=== PATIENT | female | born 1970 | race Caucasian/White ===

== ENCOUNTER → 2021-08-08 14:11 | Outpatient (CLI) | payer BC, SELFPAY ==
[2021-08-08 14:54] LABS: Amphetamine/Metha Screen,Urine Negative ng/ml (<1000)
[2021-08-08 14:55] LABS: Barbiturates Screen,Urine Negative ng/ml (<200); Benzodiazepines Screen,Urine Positive ng/ml (<200)
[2021-08-08 14:56] LABS: Cannabinoid Screen,Urine Negative ng/ml (<50)
[2021-08-08 14:57] LABS: Cocaine Screen,Urine Negative ng/ml (<300); Methadone Screen,Urine Negative ng/ml (<300)
[2021-08-08 14:58] LABS: Opiate Screen,Urine Negative ng/ml (<300)
[2021-08-08 14:59] LABS: Phencyclidine Screen,Urine Negative ng/ml (<25)
== END ==
PROVIDERS: Visit Provider Family Medicine
DX: Z79.899 Other long term (current) drug therapy (principal)
CPT/HCPCS: 80305

== ENCOUNTER → 2021-09-06 08:39 | Outpatient (CLI) | payer BC, SELFPAY ==
[2021-09-07 08:42] LABS: Adenovirus,PCR Not Detected (NotDetected); Bordetella Pertussis Not Detected (NotDetected); Chlamydophila Pneumoniae, PCR Not Detected (NotDetected); Coronavirus 19, PCR Not Detected (NotDetected); Coronavirus 229E Not Detected (NotDetected); Coronavirus NL63 Not Detected (NotDetected); Coronavirus OC43 Not Detected (NotDetected); Coronovirus HKU1,PCR Not Detected (NotDetected); Human Metapneumovirus Not Detected (NotDetected); Influenza A, PCR Not Detected (NotDetected); Influenza AH1, 2009 Not Detected (NotDetected); Influenza AH1, PCR Not Detected (NotDetected); Influenza AH3,PCR Not Detected (NotDetected); Influenza B, PCR Not Detected (NotDetected); Mycoplasma Pneumoniae, PCR Not Detected (NotDetected); Parainfluenza 1, PCR Not Detected (NotDetected); Parainfluenza 2, PCR Not Detected (NotDetected); Parainfluenza 3, PCR Not Detected (NotDetected); Parainfluenza 4, PCR Not Detected (NotDetected); Respiratory Syncytial Virus Not Detected (NotDetected); Rhinovirus/Enterovirus Not Detected (NotDetected)
== END ==
PROVIDERS: Visit Provider Family Medicine
DX: Z20.822 Contact with and (suspected) exposure to COVID-19 (principal); R06.02 Shortness of breath; R50.9 Fever, unspecified
CPT/HCPCS: 87581; 87632; 87798; C9803; U0003; U0005

== ENCOUNTER → 2021-10-04 13:56 | Outpatient (CLI) | payer BC, SELFPAY ==
[2021-10-04 15:40] LABS: Phencyclidine Screen,Urine Negative ng/ml (<25)
[2021-10-04 15:41] LABS: Amphetamine/Metha Screen,Urine Negative ng/ml (<1000)
[2021-10-04 15:42] LABS: Barbiturates Screen,Urine Negative ng/ml (<200); Benzodiazepines Screen,Urine Positive ng/ml (<200)
[2021-10-04 15:43] LABS: Cannabinoid Screen,Urine Negative ng/ml (<50)
[2021-10-04 15:44] LABS: Cocaine Screen,Urine Negative ng/ml (<300); Methadone Screen,Urine Negative ng/ml (<300)
[2021-10-04 15:45] LABS: Opiate Screen,Urine Negative ng/ml (<300)
== END ==
PROVIDERS: Visit Provider Emergency Medicine
DX: Z79.899 Other long term (current) drug therapy (principal)
CPT/HCPCS: 80305

== ENCOUNTER → 2021-12-07 15:34 | Outpatient (CLI) | payer BC, SELFPAY ==
[2021-12-07 14:30] LABS: Amphetamine/Metha Screen,Urine Negative ng/ml (<1000)
[2021-12-07 14:31] LABS: Barbiturates Screen,Urine Negative ng/ml (<200)
[2021-12-07 14:32] LABS: Benzodiazepines Screen,Urine Positive ng/ml (<200)
[2021-12-07 14:33] LABS: Cannabinoid Screen,Urine Negative ng/ml (<50)
[2021-12-07 14:34] LABS: Cocaine Screen,Urine Negative ng/ml (<300); Methadone Screen,Urine Negative ng/ml (<300)
[2021-12-07 14:35] LABS: Opiate Screen,Urine Negative ng/ml (<300); Phencyclidine Screen,Urine Negative ng/ml (<25)
== END ==
PROVIDERS: Visit Provider Emergency Medicine
DX: Z79.899 Other long term (current) drug therapy (principal)
CPT/HCPCS: 80305

== ENCOUNTER → 2021-12-27 13:35 | Outpatient (CLI) | payer BC, SELFPAY ==
[2021-12-27 13:22] LABS: Basophils # 0.1 K/mm3 (0-0.2); Basophils % 0.7 % (0.1-2.0); Eosinophils # 0.2 K/mm3 (0.0-0.4); Eosinophils % 1.4 % (0.1-12.0); Hematocrit 41.9 % (37.0-47.0); Hemoglobin 13.1 g/dL (12.2-16.2); Lymphocytes # 3.3 K/mm3 (0.7-4.5); Mean Corpuscular HGB Conc 31.2 g/dL (31.8-35.4); Mean Corpuscular Hemoglobin 30.7 pg (27.0-31.2); Mean Corpuscular Volume 98.2 fl (81-99); Mean Platelet Volume 9.8 fl (7.4-10.4); Monocytes # 0.6 K/mm3 (0.1-1.0); Monocytes % 5.9 % (1.7-9.3); Neutrophils # 6.6 K/mm3 (1.8-7.8); Neutrophils % 61.1 % (37.0-80.0); Platelet Count 405 K/mm3 (142-424); Red Blood Count 4.27 M/mm3 (4.20-5.40); White Blood Count 10.8 K/mm3 (4.8-10.8)
[2021-12-27 13:40] LABS: Alanine Aminotransferase 26 U/L (12-78); Albumin Level 4.2 g/dl (3.5-5.0); Albumin/Globulin Ratio 1.6 (1.1-1.8); Alkaline Phosphatase 98 U/L (38-126); Anion Gap 10.8 mEq/L (5-15); Aspartate Amino Transferase 32 U/L (14-36); Bilirubin,Total 0.3 mg/dl (0.2-1.3); Blood Urea Nitrogen 5 mg/dl (7-17); Calcium 9.1 mg/dl (8.4-10.2); Carbon Dioxide 28 mmol/L (22.0-30.0); Chloride 106 mmol/L (98-107); Chol/HDL Ratio 5.3 (1-3.5); Cholesterol 170 mg/dl (140-200); Estimated Glomerular Filt Rate 89 ml/min (>60); GFR (African American) 107 ML/MIN (>60); Globulin 2.6 g/dL (1.3-3.2); Glucose 93 mg/dl (74-100); HDL Cholesterol 32 mg/dl (40-60); Potassium 3.8 mmoL/L (3.5-5.1); Sodium 141 mmol/L (136-145); Total Protein,Serum 6.8 g/dl (6.3-8.2); Triglycerides 173 mg/dl (30-150); VLDL Cholesterol 35 mg/dL (0-40)
[2021-12-27 13:50] LABS: NT Pro Brain Natriuretic Pep. 194 pg/mL (0-125)
[2021-12-27 13:51] LABS: Direct LDL Cholesterol 98.23 mg/dL (100-129)
[2021-12-27 13:56] LABS: Free T4 (Free Thyroxine) 1.05 ng/dl (0.78-2.19)
[2021-12-27 13:58] LABS: 25-OH Vitamin D, Total 30.6 ng/mL (30-100)
[2021-12-27 14:11] LABS: Thyroid Stimulating Hormone 1.93 uIU/mL (0.465-4.68)
[2021-12-27 17:09] LABS: Amphetamine/Metha Screen,Urine Negative ng/ml (<1000)
[2021-12-27 17:10] LABS: Barbiturates Screen,Urine Negative ng/ml (<200); Benzodiazepines Screen,Urine Positive ng/ml (<200)
[2021-12-27 17:11] LABS: Cannabinoid Screen,Urine Negative ng/ml (<50)
[2021-12-27 17:12] LABS: Cocaine Screen,Urine Negative ng/ml (<300); Methadone Screen,Urine Negative ng/ml (<300)
[2021-12-27 17:13] LABS: Opiate Screen,Urine Negative ng/ml (<300)
[2021-12-27 17:14] LABS: Phencyclidine Screen,Urine Negative ng/ml (<25)
== END ==
PROVIDERS: Visit Provider Emergency Medicine
DX: E03.9 Hypothyroidism, unspecified (principal); E66.3 Overweight; Z79.899 Other long term (current) drug therapy; E55.9 Vitamin D deficiency, unspecified; I50.9 Heart failure, unspecified
CPT/HCPCS: 80053; 80061; 80305; 82306; 83880; 84439; 84443; 85025

== ENCOUNTER → 2022-01-14 08:29 | Outpatient (CLI) | payer BC, SELFPAY ==
--- NOTE | 2022-01-14 08:30 | MR_ITS ---
FINAL REPORT CLINICAL HISTORY: low back pain x's 2 months. pain radiates down right leg. leg swelling and pain. nki. FINDINGS: Multiplanar MR imaging of the lumbar spine was performed without contrast. On the sagittal T2-weighted images, multilevel disc degeneration is seen. There are endplate changes at L5-S1. The vertebral alignment is normal. There is no evidence of fracture. No bony mass is identified. The conus is seen at approximately the L1 level and has an unremarkable appearance. L1-2: There is no significant canal stenosis or neural foraminal narrowing. L2-3: There is no significant canal stenosis or neural foraminal narrowing. L3-4: There is no significant canal stenosis or neural foraminal narrowing. L4-5: Annular disc bulge with small left paracentral disc protrusion and mild left neural foraminal narrowing. L5-S1: Annular disc bulge with facet arthropathy and osteophytes. There is severe right and moderate left neural foraminal narrowing. IMPRESSION: Multilevel degenerative disc disease with small paracentral disc protrusion at L4-5 and severe right neural foraminal narrowing at L5-S1. Reviewed, Interpreted and Dictated by Deandre Shields III, MD Transcribed by Brooke Martinez Authenticated by Deandre Shields III, MD on 01/16/2022 07:43:50 AM [facility]
== END ==
PROVIDERS: PCP Emergency Medicine; Visit Provider Emergency Medicine
DX: M54.50 Low back pain, unspecified (principal)
CPT/HCPCS: 72148; 76376

== ENCOUNTER → 2022-01-20 12:20 | Outpatient (CLI) | payer BC, SELFPAY ==
--- NOTE | 2022-01-20 12:21 | CA_ITS ---
APPROVED REPORT EXAM: Comprehensive 2D, Doppler, and color-flow Echocardiogram Information Systems Supervisor: Mavis Bull RVT Ht: 5 ft 5 in Wt: 156lbs BSA: 1.78 BP: 120/80 mmHg Indications: EDEMA,SMOKER,MURMUR 2D Dimensions LVOT 1.93 cm (M/F) 1.5-2.5 LA Volume 27.10 mL LA Volume Index 15.22 mL/m2 (M/F) 16-34 M-Mode Dimensions RVDd 2.47 cm (0.9-2.6) LA Diam 3.14 cm (1.9-4.0) LVDd 4.41 cm (3.5-5.7) Ao Diam 3.32 cm (2.0-3.7) LVDs 2.96 cm (3.5-5.7) IVSd 0.87 cm (0.6-1.1) PWd 0.72 cm (0.6-1.1) EF (Teich) 61.60% FS 32.90% EDV (Teich) 88.20 mL TAPSE 2.44 (<1.7) ESV (Teich) 33.90 mL LV Diastology E Decel Time 150.00 (160-240 msec) E/A Ratio 1.2 MED E' 6.20 (< 7 cm/sec) E'/MED E' Ratio 10.23 (>14) LAT E' 10.20 (<10 cm/sec) E/LAT E' Ratio 6.22 (>14) Aortic Valve AO Peak GR. 5.10 mmHg Mitral Valve MV E Max Yousif. 63.00 (40-130 cm/s) MV A Velocity 51.00 (40-130 cm/s) E/A Ratio 1.25 MV Decel. Time 150.00 (160-240 ms) MV PHT 44.00 ms Pulmonary Valve PV Peak Velocity 73.00 (50-150 cm/s) Tricuspid Valve TR P. Velocity 231.00 cm/s RAP Estimate 10.00 mmHg RVSP 31.40 mmHg Left Ventricle Left atrium is mildly enlarged, left ventricle is normal size, estimated ejection fraction 55% with no regional wall motion abnormality. Diastolic parameters are inconclusive. Right atrium and right ventricle are mildly enlarged with normal contractility. Aortic Valve Aortic valve is minimally thickened and fibrosed, there is no aortic stenosis or aortic insufficiency. Mitral Valve Mitral valve grossly normal, there is trace mitral regurgitation. Tricuspid Valve Tricuspid valve grossly normal, there is mild tricuspid regurgitation, tricuspid regurgitation jet velocity is inadequate for calculation of the right ventricular systolic pressure. Pulmonic Valve Pulmonic valve is poorly visualized. Great Vessels Aortic root is normal size. Inferior vena cava is normal size with normal inspiratory collapse. Pericardium No significant pericardial effusion noted. Conclusion 1. Mild biatrial enlargement, normal left ventricular size, estimated ejection fraction 55% with no regional wall motion abnormality. Diastolic parameters are inconclusive. 2. Trace mitral and mild tricuspid regurgitation. 3. No significant pericardial effusion. 4. Inferior vena cava is normal size with normal inspiratory collapse. Electronically signed by : Brando Greene MD 01/20/2022 15:18:17
== END ==
PROVIDERS: PCP Emergency Medicine; Visit Provider Emergency Medicine
DX: R01.1 Cardiac murmur, unspecified (principal)
CPT/HCPCS: 93306

== ENCOUNTER → 2022-02-15 12:32 | Outpatient (CLI) | payer BC, SELFPAY ==
[2022-02-15 17:26] LABS: Barbiturates Screen,Urine Negative ng/ml (<200)
[2022-02-15 17:27] LABS: Benzodiazepines Screen,Urine Positive ng/ml (<200)
[2022-02-15 17:28] LABS: Amphetamine/Metha Screen,Urine Negative ng/ml (<1000); Methadone Screen,Urine Negative ng/ml (<300)
[2022-02-15 17:29] LABS: Cannabinoid Screen,Urine Negative ng/ml (<50); Cocaine Screen,Urine Negative ng/ml (<300)
[2022-02-15 17:31] LABS: Opiate Screen,Urine Negative ng/ml (<300); Phencyclidine Screen,Urine Negative ng/ml (<25)
== END ==
PROVIDERS: Visit Provider Emergency Medicine
DX: Z79.899 Other long term (current) drug therapy (principal)
CPT/HCPCS: 80305

== ENCOUNTER → 2022-03-20 11:06 | Outpatient (POV) | payer BC, SELFPAY ==
[2022-03-20 12:29] VITALS: BP 125/72; PULSE 64; RESP 20; TEMP 37.1; O2SAT 95; BMI 23.6
--- NOTE | 2022-03-20 13:58 | HMH.PMCON ---
Assessment and Plan (1) Degenerative disc disease, lumbar Status: Acute Category: Medical Code(s): M51.36 - Other intervertebral disc degeneration, lumbar region (2) Lumbar radiculopathy Status: Acute Category: Medical Code(s): M54.16 - Radiculopathy, lumbar region (3) Facet arthropathy, lumbar Status: Acute Category: Medical Code(s): M47.816 - Spondylosis without myelopathy or radiculopathy, lumbar region (4) Spondylosis Status: Acute Category: Medical Code(s): M47.9 - Spondylosis, unspecified - Assessment and plan all Dx Assessment and Plan for all problems:: Imaging: Ordering Physician: Salas Gabriel MD Date of Service: 01/14/22 Procedure(s): MR lumbar spine wo con Accession Number(s): [id number] cc: Salas Gabriel MD; Deandre Shields MD~ FINAL REPORT CLINICAL HISTORY: low back pain x's 2 months. pain radiates down right leg. leg swelling and pain. nki. FINDINGS: Multiplanar MR imaging of the lumbar spine was performed without contrast. On the sagittal T2-weighted images, multilevel disc degeneration is seen. There are endplate changes at L5-S1. The vertebral alignment is normal. There is no evidence of fracture. No bony mass is identified. The conus is seen at approximately the L1 level and has an unremarkable appearance. L1-2: There is no significant canal stenosis or neural foraminal narrowing. L2-3: There is no significant canal stenosis or neural foraminal narrowing. L3-4: There is no significant canal stenosis or neural foraminal narrowing. L4-5: Annular disc bulge with small left paracentral disc protrusion and mild left neural foraminal narrowing. L5-S1: Annular disc bulge with facet arthropathy and osteophytes. There is severe right and moderate left neural foraminal narrowing. IMPRESSION: Multilevel degenerative disc disease with small paracentral disc protrusion at L4-5 and severe right neural foraminal narrowing at L5-S1. Reviewed, Interpreted and Dictated by Deandre Shields III, MD Transcribed by Brooke Martinez Authenticated by Deandre Shields III, MD on 01/16/2022 07:43:50 AM [facility] Plan: Patient has been having worsening low back pain that radiates to bilateral lower extremities. Patient is tender to palpation around the lumbar facets. Patient does physical therapy 2 times a week that provides minimal relief. We will schedule the patient for a diagnostic medial branch block at L4-L5, L5-S1 bilaterally. Patient is not on any blood thinners. Follow-up after the injection. Patient has been instructed to contact the clinic with any concerns before the next appointment. Dr. Peterson has reviewed this note and agrees with this plan of care. This note was dictated using voice recognition software and make contain errors or omissions. HPI - Data of Consult Patient: new to practice Consult date: 03/20/22 Requesting Physician: TAN Chopra - Consult Narrative Reason for consult: LBP History of present illness: Ms. Lovett is a 51 year old female who presents today as a new pt. Patient is referred by Dr. Lovett. Thank you for the referral. Pt presents with worsening LBP that radiates at time to BLE. She's had pain for several years but has gotten worse in January. She had to go to the ED in January because of the pain. She cannot tolerate any prolonged activities such as standing and walking. Pain is worse with lumbar flexion, extension, and rotation. She has seen NSx/Ortho who deemed her a non-surgical candidate. She goes to PT x2/week that is providing some relief. She used to be an RN. She is currently on suboxone therapy and has been for 12-13 years. Because of this pain, she has been having trouble with her ADLs. Rates pain as 9/10. For pain, she is also prescribed Gabapentin 800mg TID, Suboxone, and Alprazolam 1mg TID. [facility] [id number], MEQ 0. CC: TAN Chopra [facility] History I have reviewed the patient's past medical history: Yes Medical
== END ==
PROVIDERS: Visit Provider Student in an Organized Health Care Education/Training Program
DX: M51.16 Intervertebral disc disorders with radiculopathy, lumbar region (principal); M47.26 Other spondylosis with radiculopathy, lumbar region; Z72.0 Tobacco use
CPT/HCPCS: 99202; G0463

== ENCOUNTER 2022-04-07 11:52 | Day surgery (SDC) | payer BC, SELFPAY ==
[2022-04-07 12:13] VITALS: BP 112/78; PULSE 70; RESP 18; TEMP 36.8; O2SAT 96; BMI 23.4
[2022-04-07 12:19] VITALS: BP 125/54; PULSE 70; RESP 20
[2022-04-07 12:30] VITALS: BP 114/79; PULSE 69; RESP 18; O2SAT 97
--- NOTE | 2022-04-07 12:41 | HMH.PMPROC ---
- Procedure Date: 04/07/22 Time: 12:41 Anesthesiologist:: Eulalio Heard CRNA Complications:: None Pre-procedure Diagnosis:: Degenerative disease lumbar spine multilevels. Lumbar spondylosis. Lumbar facet arthropathy. Post-procedure Diagnosis:: Same Indications for Procedure:: Patient is a very pleasant 51-year-old female who comes our clinic today for bilateral L4-5, L5-S1 facet blocks. Patient complains of low back pain with minimal radicular symptoms. Her MRI does show degenerative disc disease lumbar spine multilevels. With L4-5 and L5-S1 facet arthropathy. Procedure Details:: Details of the procedure were explained to the patient. The patient taken the procedure room placed in the prone position on the fluoroscopy table. The area of the lumbar spine was cleaned using chlorhexidine as a cleansing solution. Markers were placed over the L4-5 L5-S1 pedicles. The skin and subcutaneous tissue was anesthetized using 1% lidocaine and a 25-gauge needle. At this time using it 3 and half inch 22-gauge spinal needle the right lumbar L4-5 facet joint as well as the right L5-S1 facet joint was accessed. 1 cc of 1% lidocaine and 10 mg of Depo-Medrol was injected. The same procedure was carried out on the left side at that same joints. Patient tolerated the procedure without difficulty. There are no complications. Plan and Disposition:: Patient was discharged without incident.
== END 2022-04-07 12:30 | disposition home or self-care (01) ==
LOC: SC.PAINP 11:55
PROVIDERS: PCP Emergency Medicine; Visit Provider Nurse Anesthetist, Certified Registered
DX: M51.36 Other intervertebral disc degeneration, lumbar region (principal); M54.06 Panniculitis affecting regions of neck and back, lumbar region; M47.896 Other spondylosis, lumbar region
CPT/HCPCS: 64493; 64494; J1040

== ENCOUNTER → 2022-05-01 11:02 | Outpatient (POV) | payer BC, SELFPAY ==
[2022-05-01 11:37] VITALS: BP 141/89; PULSE 60; RESP 20; TEMP 36.6; O2SAT 98; BMI 25.0
--- NOTE | 2022-05-01 12:43 | HMH.PAINSOAP ---
[facility] Pain Management SOAP Note Subjective:: Patient is a pleasant 51-year-old female the presents today for follow-up from a medial branch block at L4-L5, L5-S1 on 04/07/2022. We are currently treating the patient for degenerative disc disease of lumbar spine multilevels with lumbar spondylosis and lumbar facet arthropathy. Patient states that she had significant relief from this injection. She states that she had 70% improvement on her left side and feels like it is still helping. She states that she still is having more right-sided low back pain. She states that this is an ache, throbbing sensation. Patient denies any new trauma or injury to the site. She states that she has had this pain over the last several years. She states that she was lifting her granddaughter this weekend which seemed to make it worse. Patient states that activities of daily living such as washing the dishes also aggravate the pain. Patient is currently going to physical therapy to provide some relief. She has used a TENS unit in the past with minimal improvement. She has been seen by neurosurgery who is deemed her a nonsurgical candidate. She sees Dr. Lovett in [place] as needed. Patient used to be an RN. She is currently on Suboxone therapy and has been for 12 to 13 years. She is managed with gabapentin 800 mg 3 times daily and alprazolam 1 mg 3 times daily. These medications are written by Dr. Gabriel. Patient also states she has a history of migraines and is interested in Botox therapy. Her Renaldo is [phone]. It has been reviewed and appropriate. Review of Systems: General: No recent weight changes, no fever, no sleep disturbances Respiratory: No cough, no shortness of air, no recurring pulmonary infections Cardiovascular/peripheral vascular: No chest pain, no palpitations, no edema, no shortness of breath Gastrointestinal: No new onset incontinence, normal bowel movements reported Genitourinary: No new onset incontinence Musculoskeletal: Low back pain Psychiatric: [Normal mood/affect] Neurological: [Denies weakness in extremities], [denies balance issues] Objective:: Physical Exam: General: Alert and oriented x3, no acute distress, pleasant and cooperative Lungs: Respirations even and unlabored, symmetrical chest expansion Eyes: PERRL Musculoskeletal: Flexion and extension of lumbar [spine] somewhat guarded secondary to pain, [antalgic gait noted] Neurological: Speech clear, no gross sensory deficit Assessment:: Degenerative disc disease of lumbar spine multilevels, lumbar spondylosis, lumbar facet arthropathy, right sacroiliitis, migraines Plan:: Patient has had significant pain in her right low back. She had a positive point tenderness in her lumbar spine. Patient also had a positive right Tyrell, Ailyn's, Gaenslen's, compression, distraction during today's exam. I have discussed with the patient regarding SI injections. Risk and benefits were discussed with the patient. She would like to proceed forward with this injection at this time. I will order the patient diclofenac 75 mg twice daily. We will follow-up with the patient regarding her migraine history at our next visit for possible Botox injections. The patient will be scheduled for a right sacroiliac injection. Patient has been instructed to contact the clinic with any concerns before the next appointment. Dr. Peterson has reviewed this note and agrees with this plan of care. This note was dictated using voice recognition software and make contain errors or omissions. [facility] History I have reviewed the patient's past medical history: Yes Medical History: Reports:: Anxiety, Depression Denies:: Diabetes Mellitus Type 1, Diabetes Mellitus Type 2, MRSA *Have you ever received a pneumonia vaccine?: Yes *Have you received a flu vaccine this season?: Yes Other Medical History: Reports: Arthritis, Hypothyroidism, Other Laterality Cases: Bilateral: Myringotomy (Ear Tubes), Tonsillectomy Other Surgeries:
== END ==
PROVIDERS: PCP Emergency Medicine; Visit Provider Student in an Organized Health Care Education/Training Program
DX: M51.36 Other intervertebral disc degeneration, lumbar region (principal); M47.26 Other spondylosis with radiculopathy, lumbar region; M46.1 Sacroiliitis, not elsewhere classified
CPT/HCPCS: 99212; G0463

== ENCOUNTER 2022-05-12 08:35 | Day surgery (SDC) | payer BC, SELFPAY ==
[2022-05-12 08:42] VITALS: BP 112/80; PULSE 92; RESP 20; TEMP 36.7; O2SAT 99; BMI 24.4
[2022-05-12 09:20] VITALS: BP 105/71; PULSE 81; RESP 18; O2SAT 98
--- NOTE | 2022-05-12 09:45 | HMH.PMPROC ---
- Procedure Date: 05/12/22 Time: 09:45 Anesthesiologist:: Eulalio Heard CRNA Complications:: None Pre-procedure Diagnosis:: Right sacroiliitis Post-procedure Diagnosis:: Same Indications for Procedure:: This patient is a pleasant 51-year-old female who comes our clinic today for right SI joint injection. She has had significant improvement with the previous right SI joint injection lasting 3 months. She rates her pain 7/10 today..~ Procedure Details:: Procedure: Right sacroliliac joint injection under fluoroscopy Informed consent was obtained and the risk and benefits of the procedure were explained to the patient.~ The patient was taken to the procedure room and noninvasive monitors were placed including noninvasive blood pressure cuff and pulse oximeter.~ The patient was placed prone on the procedure table.~ The~ right hip was cleansed using Betadine as a cleansing solution.~ C-arm fluorosocpy was used to view the right SI joint.~ The skin and subcutaneous tissues were anesthetized using Lidocaine 1.5% and a 25-gauge needle.~ After this, a 22-gauge spinal needle was inserted under fluoroscopic guidance into the inferior aspect of the right SI joint.~ Omnipaque dye was injected and a good spread was seen throughout the joint.~ After this, approximately 5 mL of bupivacaine 0.25% and Depo-Medrol 40 mg was incrementally injected into the sacroiliac joint.~ The patient tolerated the procedure well with no complications.~ The patient was observed in the Pain Clinic, then discharged home neurologically intact.~ Plan and Disposition:: Patient was discharged without incident.
== END 2022-05-12 09:20 | disposition home or self-care (01) ==
LOC: SC.PAINP 08:36
PROVIDERS: PCP Emergency Medicine; Visit Provider Nurse Anesthetist, Certified Registered
DX: M46.1 Sacroiliitis, not elsewhere classified (principal)
CPT/HCPCS: 27096; G0260; J1040

== ENCOUNTER → 2022-06-28 09:49 | Outpatient (POV) | payer BC, SELFPAY ==
[2022-06-28 10:45] VITALS: BP 100/59; PULSE 83; RESP 18; TEMP 36.7; O2SAT 96; BMI 22.4
--- NOTE | 2022-06-28 13:03 | EXP.PAIN.SOA ---
[facility] Pain Management SOAP Note Subjective:: Patient is a pleasant 52-year-old female who presents today for follow-up of right SI injection on 05/12/2022. We are currently treating the patient for degenerative disc disease of lumbar spine multilevels with lumbar spondylosis, lumbar facet arthropathy, sacroiliitis. Patient states that this injection did provide at least 50% of improvement lasting for approximately 1 month. Patient does state that she feels like her pain is all back to its baseline currently. She rates her pain a 10 out of 10. And states is all in her low back that radiates into her right hip and butt. Patient states that she has worse pain with twisting and bending. Patient has had injective therapy in the past that has provided significant improvement of her symptoms. Patient denies any new trauma or injury. Patient denies any change in location or type of pain she experiences. And previous patient has stated that this has been going on for several years and has worsened over time. This pain often interferes with her activities of daily living such as washing the dishes and holding her granddaughter. Patient has gone to physical therapy with some improvement of her symptoms. She does use a TENS unit as well. Patient was deemed a nonsurgical candidate by neurosurgery in the past. She is currently managed with gabapentin 800 mg 3 times a day and alprazolam 1 mg 3 times a day by Dr. Gabriel's office. Patient denies any side effects from these medications. She states these medications do help with her pain symptoms. She is also on Suboxone therapy and has been for approximately 12 to 13 years. Patient does also have a history of migraines and she is interested in Botox therapy in the future. Her Renaldo is [id number]. It is been reviewed and appropriate. Review of Systems: General: No recent weight changes, no fever, no sleep disturbances Respiratory: No cough, no shortness of air, no recurring pulmonary infections Cardiovascular/peripheral vascular: No chest pain, no palpitations, no edema, no shortness of breath Gastrointestinal: No new onset incontinence, normal bowel movements reported Genitourinary: No new onset incontinence Musculoskeletal: Low back pain, right hip/buttock pain Psychiatric: [Normal mood/affect] Neurological: [Denies weakness in extremities], [denies balance issues] Objective:: Physical Exam: General: Alert and oriented x3, no acute distress, pleasant and cooperative Lungs: Respirations even and unlabored, symmetrical chest expansion Eyes: PERRL Musculoskeletal: Flexion and extension of lumbar [spine] somewhat guarded secondary to pain, [antalgic gait noted] Neurological: Speech clear, no gross sensory deficit Assessment:: Degenerative disc disease of lumbar spine multilevels with lumbar spondylosis, lumbar facet arthropathy, sacroiliitis Plan:: Patient continues to have significant pain in her low back that radiates into her right hip/buttocks during today's visit. Patient had limited range of motion of her lumbar spine during today's visit. She has tried oral therapies, heat and ice, physical therapy, at home exercises and stretching for longer than 6 weeks with minimal improvement of her symptoms. I have discussed with the patient regarding having repeat medial branch blocks. Risk and benefits were discussed with the patient. She would like to proceed forward with this injection. We will schedule the patient for MBB L4-5 and L5-S1. Patient has been instructed to contact the clinic with any concerns before the next appointment. Dr. Peterson has reviewed this note and agrees with this plan of care. This note was dictated using voice recognition software and make contain errors or omissions. [facility] Social History Smoking Status: Current every day smoker tobacco type: cigarettes packs per day: 1 alcohol intake: never substance use type: former substance user
== END ==
PROVIDERS: PCP Emergency Medicine; Visit Provider Nurse Practitioner Family
DX: M51.16 Intervertebral disc disorders with radiculopathy, lumbar region (principal); M47.26 Other spondylosis with radiculopathy, lumbar region; M46.1 Sacroiliitis, not elsewhere classified
CPT/HCPCS: 99212; G0463

== ENCOUNTER 2022-07-11 10:11 | Day surgery (SDC) | payer BC, SELFPAY ==
[2022-07-11 10:37] VITALS: BP 119/75; PULSE 73; RESP 16; TEMP 36; O2SAT 98; BMI 22.4
[2022-07-11 10:49] VITALS: BP 117/82; PULSE 77; RESP 18; O2SAT 98
[2022-07-11 10:50] VITALS: BP 123/74; PULSE 70; RESP 18; O2SAT 98
--- NOTE | 2022-07-11 10:56 | P.PCN_ITS ---
Procedure Date: 07/11/22 Time: 10:56 Anesthesiologist:: Eulalio Heard CRNA Complications:: None Pre-procedure Diagnosis:: Degenerative disc disease lumbar spine multilevels. Lumbar radiculopathy. Lumbar facet arthropathy. Lumbar spondylosis. Post-procedure Diagnosis:: Same. Indications for Procedure:: Very pleasant 52-year-old female that comes our clinic today for lumbar medial branch block L4-5, L5-S1. Patient states she has had these many times in the past with significant improvement. Typically, her improvement is 6 to 8 weeks in duration. She describes her low back pain as constant, dull, aching. She rates pain 8/10. Procedure Details:: Informed consent was obtained and the risk and benefits of the procedure was explained to the patient. Patient was taken to the procedure room where noninvasive monitors were placed, including noninvasive blood pressure cuff as well as pulse oximeter. The area over the lumbar spine was cleansed using chlorhexidine as a cleansing solution. I anesthetized the skin and subcutaneous tissues with 1% Lidocaine. I placed 22-gauge spinal needles into the facet joint/ medial branches of L4-L5, and L5-S1] bilaterally. Needle placement was confirmed with fluoroscopy. After confirmation of needle placement, each site was injected with 1 mL of 1% lidocaine and 0.25 % Marcaine and 10 mg of Depo- Medrol. A total of 80 mg of depo medrol was used for bilateral medial branch blocks of L4-L5, and L5-S1] bilaterally. Patient tolerated the procedure without difficulty. There were no complications. Plan and Disposition:: Patient was discharged without incident
[2022-07-11 10:58] VITALS: BP 112/68; PULSE 66; RESP 20; O2SAT 97
== END 2022-07-11 10:59 | disposition home or self-care (01) ==
PROVIDERS: PCP Emergency Medicine; Visit Provider Nurse Anesthetist, Certified Registered
DX: M51.16 Intervertebral disc disorders with radiculopathy, lumbar region (principal); M47.26 Other spondylosis with radiculopathy, lumbar region; M46.1 Sacroiliitis, not elsewhere classified; Z72.0 Tobacco use
CPT/HCPCS: 64493; 64494; J1040

== ENCOUNTER → 2022-09-11 10:03 | Outpatient (POV) | payer BC, SELFPAY ==
[2022-09-11 10:32] VITALS: BP 97/48; PULSE 67; RESP 18; O2SAT 95; BMI 25.4
--- NOTE | 2022-09-11 11:22 | EXP.PAIN.SOA ---
[facility] Pain Management SOAP Note Subjective:: Patient is a pleasant 52-year-old female who presents today for follow-up. We are currently treating the patient for degenerative disc disease of lumbar spine multilevels with lumbar spondylosis, lumbar facet arthropathy, sacroiliitis. Today the patient rates her pain a 10 out of 10. Patient describes the pain in her low back that is worse with bending, lifting and twisting. Patient states she is unable to do activities of daily living such as light cooking or cleaning due to the pain. Patient states she did recently have a fall last week at her apartment building. Patient states she was going down the outside for stairs and that there is no light currently and she fell landing on her right thigh and right arm. Patient denies any fractures or trauma. Patient states she did have significant bruising and is still having some soreness to touch due to the fall. Patient believes this may have aggravated her pain symptoms in her low back. Patient previously had injections in the past that provided significant improvement of her symptoms. Patient did have a right SI injection that provided at least 50% improvement lasting over 1 month. Patient also has had medial branch blocks of her lumbar spine that provided 80% relief lasting 2 to 3 months. Patient is interested in injective therapy at today's visit. Patient is currently prescribed gabapentin 800 mg 3 times [address] day from Dr. Gabriel's office. Patient denies any side effects from this medication. Patient states this does provide significant improvement of her symptoms. She is also on Suboxone therapy by Estephania Dan. Her Renaldo is [id number]. It has been reviewed and appropriate. Injections: 07/11/2022?lumbar medial branch block bilaterally L4-L5, L5-S1-80% relief lasting 2 months 05/12/2022?right SI-50% relief lasting 1 month 04/07/2022?lumbar medial branch block bilaterally L4-L5, L5-S1?8200% relief lasting 2 to 3 months Review of Systems: General: No recent weight changes, no fever, no sleep disturbances Respiratory: No cough, no shortness of air, no recurring pulmonary infections Cardiovascular/peripheral vascular: No chest pain, no palpitations, no edema, no shortness of breath Gastrointestinal: No new onset incontinence, normal bowel movements reported Genitourinary: No new onset incontinence Musculoskeletal: Low back pain Psychiatric: [Normal mood/affect] Neurological: [Denies weakness in extremities], [denies balance issues] Objective:: Physical Exam: General: Alert and oriented x3, no acute distress, pleasant and cooperative Lungs: Respirations even and unlabored, symmetrical chest expansion Eyes: PERRL Musculoskeletal: Flexion and extension of lumbar [spine] somewhat guarded secondary to pain, [antalgic gait noted] positive Kemps test Neurological: Speech clear, no gross sensory deficit Assessment:: Degenerative disc disease of lumbar spine multilevels with lumbar spondylosis, lumbar facet arthropathy, sacroiliitis Plan:: Patient is experiencing significant pain in her low back. Patient has limited range of motion of her lumbar spine along with a positive Kemps test during today's visit. Patient has had 2 lumbar medial branch blocks that provided significant improvement of approximately 80 to 100% relief lasting 2 to 3 months. Patient has tried and failed conservative therapies such as oral medications, topicals, heat and ice, physical therapy, at home exercising and stretching for longer than 6 weeks. I have discussed with the patient that she may benefit from diagnostic lumbar RFA. Patient has had risk and benefits were discussed with the patient. She would like to proceed forward with this plan of care. Patient is not on any blood thinners. We will schedule the patient for a lumbar RFA bilaterally L4-L5, L5-S1. Patient has been instructed to contact the clinic with any concerns before the next appointment. Dr. Peterson has reviewed this note and agrees wi
== END ==
PROVIDERS: PCP Emergency Medicine; Visit Provider Nurse Practitioner Family
DX: M51.16 Intervertebral disc disorders with radiculopathy, lumbar region (principal); M46.1 Sacroiliitis, not elsewhere classified; M47.26 Other spondylosis with radiculopathy, lumbar region
CPT/HCPCS: 99212; G0463

== ENCOUNTER → 2022-12-18 23:16 | Outpatient (CLI) | payer BC, SELFPAY ==
[2022-12-18 18:22] LABS: Benzodiazepines Screen,Urine Negative ng/ml (<200)
[2022-12-18 18:23] LABS: Amphetamine/Metha Screen,Urine Positive ng/ml (<1000)
[2022-12-18 18:24] LABS: Barbiturates Screen,Urine Negative ng/ml (<200); Cannabinoid Screen,Urine Negative ng/ml (<50)
[2022-12-18 18:25] LABS: Cocaine Screen,Urine Negative ng/ml (<300)
[2022-12-18 18:26] LABS: Methadone Screen,Urine Negative ng/ml (<300)
[2022-12-18 18:27] LABS: Opiate Screen,Urine Negative ng/ml (<300); Phencyclidine Screen,Urine Negative ng/ml (<25)
== END ==
PROVIDERS: PCP Emergency Medicine; Visit Provider Emergency Medicine
DX: F41.9 Anxiety disorder, unspecified (principal); F19.11 Other psychoactive substance abuse, in remission
CPT/HCPCS: 80305; 80324

== ENCOUNTER → 2022-12-27 09:01 | Outpatient (POV) | payer BC, SELFPAY ==
[2022-12-27 09:57] VITALS: BP 102/70; PULSE 91; RESP 18; O2SAT 97; BMI 25.1
--- NOTE | 2022-12-27 10:11 | EXP.PAIN.SOA ---
[facility] Pain Management SOAP Note Subjective:: Patient is a pleasant 52-year-old female who presents today for follow-up. We are currently treating the patient for degenerative disc disease of lumbar spine multilevels with lumbar spondylosis, lumbar facet arthropathy and sacroiliitis. Today she rates her pain an 8 out of 10. Patient denies any new trauma or injury. Patient denies any change location or type of pain she experiences. She does state that her pain is unbearable in her low back and describes it as a constant aching, sharp sensation that is worse with increased activity. At our last visit we did discuss about doing the lumbar ablation however she states that she was pulled over and given a DUI due to her Suboxone prescription. She states that she was not drinking however she did have her pill bottle on her for her Suboxone and that based off of this they charged her. She states that she did have to stay in the retirement for approximately 25 days until they could reduce her want. 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 She states she is currently in the process of fighting this charge. Patient has had multiple medial branch blocks of her lumbar spine that did provide upwards of 80% relief or more lasting 2 to 3 months with each of these injections. Patient is also prescribed gabapentin 800 mg 3 times a day and clonazepam 1 mg [address] Gabriel's office. Patient denies any side effects from this medication. Patient has recently been prescribed Percocet 5 mg with a 3-day dose from Dr. Oliveira. her Renaldo is [id number]. Its been reviewed and appropriate. Review of Systems: General: No recent weight changes, no fever, no sleep disturbances Respiratory: No cough, no shortness of air, no recurring pulmonary infections Cardiovascular/peripheral vascular: No chest pain, no palpitations, no edema, no shortness of breath Gastrointestinal: No new onset incontinence, normal bowel movements reported Genitourinary: No new onset incontinence Musculoskeletal: Low back pain Psychiatric: [Normal mood/affect] Neurological: [Denies weakness in extremities], [denies balance issues] Objective:: Physical Exam: General: Alert and oriented x3, no acute distress, pleasant and cooperative Lungs: Respirations even and unlabored, symmetrical chest expansion Eyes: PERRL Musculoskeletal: Flexion and extension of lumbar [spine] somewhat guarded secondary to pain, [antalgic gait noted] positive Kemps sign Neurological: Speech clear, no gross sensory deficit Assessment:: Degenerative disc disease of lumbar spine with lumbar radiculopathy symptoms, lumbar facet arthropathy, lumbar spondylosis, sacroiliitis Plan:: Patient continues to experience significant pain in her low back with limited range of motion and a positive Kemps test. Patient has had at least 2 lumbar medial branch blocks that did provide upwards of 80 to 100% relief lasting typically 2 to 3 months. I have discussed with the patient that she may benefit from the lumbar RFA. Risk and benefits were discussed with the patient and she would like to proceed forward with this plan of care. Patient is not on any blood thinners. Patient has tried and failed conservative therapy such as oral medications, topical, heat and ice, physical therapy and at home exercising and stretching for longer than 6 weeks. We will submit to insurance for a lumbar RFA of L4-L5 and L5-S1 bilaterally. Patient has been instructed to contact the clinic with any concerns before the next appointment. Dr. Peterson has reviewed this note and agrees with this plan of care. This note was dictated using voice recognition software and make contain errors or omissions. [facility] Disclaimer: The information contained in this section may have been updated after the patient was seen, as this information can be updated by other users. Medical History (Updated 12/20/22 @ 09:05 by LYDIA James) Anxiety Depression Hx
== END ==
PROVIDERS: PCP Emergency Medicine; Visit Provider Nurse Practitioner Family
DX: M51.16 Intervertebral disc disorders with radiculopathy, lumbar region (principal); M47.26 Other spondylosis with radiculopathy, lumbar region; M46.1 Sacroiliitis, not elsewhere classified
CPT/HCPCS: 99212; G0463

== ENCOUNTER 2023-01-12 12:57 | Day surgery (SDC) | payer BC, SELFPAY ==
[2023-01-12 13:10] VITALS: BP 106/72; PULSE 79; RESP 20; TEMP 36.4; O2SAT 96; BMI 25.0
[2023-01-12 14:10] VITALS: BP 104/65; PULSE 73; RESP 18; O2SAT 98
[2023-01-12 14:11] VITALS: BP 104/65; PULSE 73; RESP 18; O2SAT 98
[2023-01-12 14:20] VITALS: BP 118/77; PULSE 66; RESP 20
--- NOTE | 2023-01-12 14:24 | EXP.PAIN.PRO ---
Procedure Date: 01/12/23 Time: 14:24 Anesthesiologist:: David Peterson MD Complications:: None Pre-procedure Diagnosis:: Degenerative disc disease of lumbar spine with lumbar spondylosis and lumbar facet arthropathy Post-procedure Diagnosis:: Same Indications for Procedure:: This patient is a pleasant 52-year-old white female who we are treating for low back pain with lumbar spondylosis and lumbar facet arthropathy. She has done well with previous medial branch blocks. She has had 2 successful diagnostic blocks. She presents for RF ablation of the L4-L5 and L5-S1 facet joint/medial branches today. Procedure Details:: Lumbar RFA informed consent was obtained and the risk and benefits of the procedure was explained to the patient. Patient was placed prone on the procedure table. The patient was prepped and draped in sterile fashion. C-arm fluoroscopy was used to view the lumbar spine. The skin and subcutaneous tissues were anesthetized using lidocaine. I placed 20-gauge RF needles into the facet joints of L4-5 and L5-S1 bilaterally. We underwent sensory stimulation. There is good sensory stimulation at 0.8 V. We underwent motor stimulation. There is no motor stimulation at 3 V. We then anesthetized these levels with lidocaine. I then burned both levels of L4-5 and L5-S1 facet joint/medial branches bilaterally for 4 minutes at 80 ?C. Patient tolerated the procedure well with no complication. Plan and Disposition:: We will follow-up with this patient in 2 weeks. Will reevaluate symptoms at that time
== END 2023-01-12 14:20 | disposition home or self-care (01) ==
PROVIDERS: PCP Emergency Medicine; Visit Provider Anesthesiology
DX: M51.16 Intervertebral disc disorders with radiculopathy, lumbar region (principal); M47.26 Other spondylosis with radiculopathy, lumbar region
CPT/HCPCS: 64635; 64636; J1030

== ENCOUNTER → 2023-02-28 23:18 | Outpatient (CLI) | payer BC, SELFPAY ==
[2023-02-28 13:35] LABS: Basophils # 0.1 K/mm3 (0-0.2); Basophils % 0.9 % (0.1-2.0); Eosinophils # 0.1 K/mm3 (0.0-0.4); Hematocrit 44.9 % (37.0-47.0); Hemoglobin 14.6 g/dL (12.2-16.2); Lymphocytes % 56.8 % (10-50); Mean Corpuscular HGB Conc 32.5 g/dL (31.8-35.4); Mean Corpuscular Hemoglobin 29.3 pg (27.0-31.2); Mean Corpuscular Volume 90.2 fl (81-99); Monocytes # 0.5 K/mm3 (0.1-1.0); Monocytes % 7.6 % (1.7-9.3); Neutrophils # 2.4 K/mm3 (1.8-7.8); Neutrophils % 33.8 % (37.0-80.0); Platelet Count 367 K/mm3 (142-424); Red Blood Count 4.98 M/mm3 (4.20-5.40)
[2023-02-28 13:39] LABS: Alanine Aminotransferase 18 U/L (12-78); Albumin Level 4.3 g/dl (3.5-5.0); Albumin/Globulin Ratio 1.5 (1.1-1.8); Alkaline Phosphatase 90 U/L (38-126); Aspartate Amino Transferase 35 U/L (14-36); Bilirubin,Total 0.4 mg/dl (0.2-1.3); Blood Urea Nitrogen 5 mg/dl (7-17); Calcium 9.4 mg/dl (8.4-10.2); Carbon Dioxide 26 mmol/L (22.0-30.0); Chloride 104 mmol/L (98-107); Cholesterol 202 mg/dl (140-200); Estimated Glomerular Filt Rate 76 ml/min (>60); GFR (African American) 92 ML/MIN (>60); Globulin 2.8 g/dL (1.3-3.2); Glucose 88 mg/dl (74-100); HDL Cholesterol 29 mg/dl (40-60); Sodium 142 mmol/L (136-145); Total Protein,Serum 7.1 g/dl (6.3-8.2); Triglycerides 311 mg/dl (30-150); VLDL Cholesterol 62 mg/dL (0-40)
[2023-02-28 13:40] LABS: Amphetamine/Metha Screen,Urine Negative ng/ml (<1000)
[2023-02-28 13:41] LABS: Barbiturates Screen,Urine Negative ng/ml (<200); Benzodiazepines Screen,Urine Positive ng/ml (<200)
[2023-02-28 13:42] LABS: Cannabinoid Screen,Urine Negative ng/ml (<50); Cocaine Screen,Urine Negative ng/ml (<300)
[2023-02-28 13:43] LABS: Methadone Screen,Urine Negative ng/ml (<300)
[2023-02-28 13:44] LABS: Opiate Screen,Urine Negative ng/ml (<300)
[2023-02-28 13:45] LABS: Phencyclidine Screen,Urine Negative ng/ml (<25)
[2023-02-28 13:45] LABS: MANUAL DIFFERENTIAL MANUAL DIFFERENTIAL (MANUAL DIFF)
[2023-02-28 13:51] LABS: Direct LDL Cholesterol 105.48 mg/dL (100-129)
[2023-02-28 13:56] LABS: Free T4 (Free Thyroxine) 0.75 ng/dl (0.78-2.19)
[2023-02-28 14:10] LABS: Thyroid Stimulating Hormone 6.73 uIU/mL (0.465-4.68)
[2023-02-28 14:45] LABS: Lymphocytes % 66 % (10-50); Monocytes % 9 % (2-9); Neutrophils % 25 % (42-76); Total Cells Counted 100
[2023-02-28 14:46] LABS: Platelet Estimate Normal; RBC Morphology Normal
== END ==
PROVIDERS: PCP Emergency Medicine; Visit Provider Emergency Medicine
DX: E66.3 Overweight (principal); Z68.29 Body mass index [BMI] 29.0-29.9, adult; Z79.899 Other long term (current) drug therapy
CPT/HCPCS: 80053; 80061; 80305; 84439; 84443; 85007; 85025

== ENCOUNTER → 2023-09-14 23:43 | Outpatient (CLI) | payer BC, SELFPAY ==
[2023-09-14 20:34] LABS: Benzodiazepines Screen,Urine Positive ng/ml (<200)
[2023-09-14 20:35] LABS: Amphetamine/Metha Screen,Urine Negative ng/ml (<1000); Barbiturates Screen,Urine Negative ng/ml (<200)
[2023-09-14 20:36] LABS: Methadone Screen,Urine Negative ng/ml (<300)
[2023-09-14 20:37] LABS: Cannabinoid Screen,Urine Negative ng/ml (<50); Cocaine Screen,Urine Negative ng/ml (<300)
[2023-09-14 20:38] LABS: Opiate Screen,Urine Negative ng/ml (<300)
[2023-09-14 20:39] LABS: Phencyclidine Screen,Urine Negative ng/ml (<25)
== END ==
PROVIDERS: PCP Internal Medicine; Visit Provider Internal Medicine
DX: Z79.899 Other long term (current) drug therapy (principal)
CPT/HCPCS: 80305